=== PATIENT | male | born 2000 | race African-American/Black ===

== ENCOUNTER 2022-04-04 11:00 | Emergency (ER) | payer BC ==
[2022-04-04 11:12] VITALS: BP 148/94; PULSE 86; RESP 18; TEMP 98.8; BMI 20.8
[2022-04-04] MEDS ORDERED: ACETAMINOPHEN 500 MG TABLET (FP) ONE (11:35)
[2022-04-04] MEDS ORDERED: ACETAMINOPHEN 500 MG TABLET (FP) PO ONE (11:35)
[2022-04-04 12:43] LABS: ALBUMIN 4.5 g/dl (3.4-5.0); BILIRUBIN,TOTAL 0.7 mg/dl (0.2-1); CALCIUM 9.6 mg/dl (8.5-10); CREATININE 0.8 mg/dl (0.55-1.3)
[2022-04-04 12:52] LABS: HEMATOCRIT 50.1 % (35.4-49); MCHC 33.9 g/dl (32.0-35.9); MEAN CELL VOLUME 94.4 fl (80-96); MEAN PLT VOLUME 8.3 fl (7.5-11.1); PLATELET COUNT 243.8 10^3/uL (134-434); RBC 5.31 10^6/uL (4.00-5.60); RDW 13.1 % (11.9-15.9); WHITE BLOOD COUNT 10.6 10^3/uL (4.0-10.8)
[2022-04-04 12:57] LABS: PLATELET ESTIMATE ADEQUATE
[2022-04-04 13:26] LABS: ERYTHROCYTE SEDIMENTATION RATE 10 mm/hr (0-10)
== END 2022-04-04 14:00 | disposition home or self-care (01) ==
LOC: FER 11:00
DX: I30.9 Acute pericarditis, unspecified (principal); R05.9 Cough, unspecified
CPT/HCPCS: 0241U-QW; 36415; 71046-TC-FY; 80053; 84484; 85027; 85651; 86140; 93005; 99285-25